=== PATIENT | female | born 1975 | race Caucasian/White ===

== ENCOUNTER 2017-02-27 14:42 | Emergency (ER) | payer BC ==
[~2017-02-27] VITALS: Ht 162.6 cm; Wt 52.0 kg
[2017-02-27 14:45] VITALS: BP 121/77; PULSE 90; RESP 18; TEMP 98.6; O2SAT 100
--- NOTE | 2017-02-27 14:54 | PD ---
HPI Chief Complaint: Respiratory Symptoms Time Seen by Provider: 14:53 Travel History International Travel<30 days: No Contact w/Intl Traveler<30days: No Traveled to known affect area: No History of Present Illness HPI 41-year-old female came to the emergency room with history of persistent headache for 14 days, shortness of breath and cough upon taking a deep breath also for 14 days. Patient is from [place] and here on vacation. She flew to [facility] 5 days ago. Patient says prior to the symptoms starting couple weeks ago she drove back and forth from [facility] to [facility] which was [address]. She is usually a very active person and has not seen a doctor in many years since she has been healthy. She has a dry cough when she takes a deep breath. She had a fever about 13 days right when all this started. This fever lasted for 1 day and after that never came back. No history of vomiting or diarrhea. She has history of headache for past 2 weeks. She usually does not get headache and it never stays for this long. She says that about 3-4 days ago she started taking iron pills [id number] which has made the headache little bit better but the shortness of breath still persists. Vital signs are within acceptable limits. [facility] Past Medical History Narrative Medical List of her past medical, surgical, social and family history is reviewed from the nursing note. ?: Not LMP: 01/2017 Social History Tobacco Use: No Allergies-Medications (Allergen,Severity, Reaction): Coded Allergies: Sulfa (Verified Allergy, Severe, RASH, 02/27/17) Comments List of her allergies reviewed from the nursing note. Reported Meds & Prescriptions Reported Meds & Active Scripts Active Ventolin Hfa 18 GM Inh (Albuterol Sulfate) 90 Mcg/Act Aer 2 Puff INH Q4-6H PRN Azithromycin 250 Mg Tab 250 Mg PO DIRECTED Take 2 tabs (500 mg) on day 1 then 1 tab daily x 4 days. Narrative Medication List of her home medications reviewed from the nursing. Review of Systems Except as stated in HPI: all other systems reviewed are Neg Physical Exam Narrative GENERAL: Awake, alert, anxious, mild distress SKIN: Focused skin assessment warm/dry. HEAD: Atraumatic. Normocephalic. EYES: Pupils equal and round. No scleral icterus. No injection or drainage. ENT: No nasal bleeding or discharge. Mucous membranes pink and moist. NECK: Trachea midline. No JVD. CARDIOVASCULAR: Regular rate and rhythm. No murmur appreciated. RESPIRATORY: No accessory muscle use. Decreased air entry bilaterally. Breath sounds equal bilaterally. GASTROINTESTINAL: Abdomen soft, non-tender, nondistended. Hepatic and splenic margins not palpable. MUSCULOSKELETAL: No obvious deformities. No clubbing. No cyanosis. No edema. NEUROLOGICAL: Awake and alert. No obvious cranial nerve deficits. Motor grossly within normal limits. Normal speech. PSYCHIATRIC: Appropriate mood and affect; insight and judgment normal. Data Data Last Documented VS Vital Signs Date Time Temp Pulse Resp B/P Pulse Ox O2 Delivery O2 Flow Rate FiO2 02/27/17 18:46 74 16 114/62 100 02/27/17 15:22 Room Air 02/27/17 15:15 98.6 Orders Complete Blood Count With Diff (02/27/17 15:01) Basic Metabolic Panel (Bmp) (02/27/17 15:01) B-Type Natriuretic Peptide (02/27/17 15:01) Troponin I (02/27/17 15:01) Iv Access Insert/Monitor (02/27/17 15:01) Electrocardiogram (02/27/17 15:01) Ecg Monitoring (02/27/17 15:01) Oximetry (02/27/17 15:01) Oxygen Administration (02/27/17 15:01) Chest, Pa & Lat (02/27/17 15:01) Sodium Chloride 0.9% Flush (Ns Flush) (02/27/17 15:15) Albuterol-Ipratropium Neb (Duoneb Neb) (02/27/17 15:15) Sodium Chlor 0.9% 1000 Ml Inj (Ns 1000 M (02/27/17 15:15) D-Dimer (02/27/17 15:03) Prochlorperazine Inj (Compazine Inj) (02/27/17 15:45) Ct Pulmonary Angiogram (02/27/17 ) Ceftriaxone Inj (Rocephin Inj) (02/27/17 16:45) Azithromycin Inj (Zithromax Inj) (02/27/17 16:45) Blood Culture (02/27/17 16:36) Iodixanol 320 Inj (Rad Ct) (Visipaque 32 (02/27/17 17:46) Labs Laboratory Tests Test 02/27/17 15:30 White Blood Count 6.4 TH/MM3 Red Blood Count 3.99 MIL/MM3 Hemoglobin 12.9 GM/DL Hematocrit 37.7 % Mean Corpuscular Volume 94.5 FL Mean Corpuscular Hemoglobin 32.2 PG Mean Corpuscular Hemoglobin 34.1 % Concent Red Cell Distribution Width 12.8 % Platelet Count 204 TH/MM3 Mean Platelet Volume 8.6 FL Neutrophils (%) (Auto) 57.2 % Lymphocytes (%) (Auto) 26.0 % Monocytes (%) (Auto) 7.0 % Eosinophils (%) (Auto) 9.3 % Basophils (%) (Auto) 0.5 % Neutrophils # (Auto) 3.7 TH/MM3 Lymphocytes # (Auto) 1.7 TH/MM3 Monocytes # (Auto) 0.4 TH/MM3 Eosinophils # (Auto) 0.6 TH/MM3 Basophils # (Auto) 0.0 TH/MM3 CBC Comment DIFF FINAL Differential Comment D-Dimer Quantitative (PE/DVT) 0.51 MG/L FEU Sodium Level 140 MEQ/L Potassium Level 4.0 MEQ/L Chloride Level 105 MEQ/L Carbon Dioxide Level 28.0 MEQ/L Anion Gap 7 MEQ/L Blood Urea Nitrogen 12 MG/DL Creatinine 0.87 MG/DL Estimat Glomerular Filtration 71 ML/MIN Rate Random Glucose 82 MG/DL Calcium Level 9.0 MG/DL Troponin I LESS THAN 0.02 NG/ML B-Type Natriuretic Peptide 42 PG/ML MDM Medical Decision Making Medical Screen Exam Complete: Yes Emergency Medical Condition: Yes Medical Record Reviewed: Yes Interpretation(s) Twelve-lead EKG was reviewed by me. Normal sinus rhythm, normal axis, nonspecific ST-T wave changes. Heart rate of 71 bpm. Differential Diagnosis Reactive airway disease, pneumonia, bronchitis, PE, brain tumor with secondary metastases to the lungs or vice versa Narrative Course 3:29 PM I wanted to order a CT scan of her head because of the intractable headache. But the patient did not want to yet. She wanted to see how the blood test looks like first. I explained to her that the blood test will not rule in or rule out brain tumor which a head CT may be able to tell. She however did not want it to be done. She was okay with all the other blood tests that has been ordered including the d-dimer. She will be getting 2 DuoNeb treatments. Awaiting for the blood test results to be done and chest x-ray. 5:10 PM blood test results are back. Patient has eosinophilia and mildly elevated d-dimer. I had a lengthy discussion with the patient regarding the CT pulmonary angiogram. Initially she was hesitant but then finally she agreed to get the CT done. She also says that after getting the breathing treatment she feels extremely better. Chest x-ray is suggestive of pneumonia as per the radiologist. I've given her dose of Rocephin and IV Zithromax. Given the fact that patient currently is afebrile and white count is within normal limits clinically I am suspicious for a pneumonia and more for PE or some other pathology. Patient says he considered of going ahead and doing the CT pulmonary angiogram and patient understands. Awaiting for the CT pulmonary angiogram. Case has been signed over to the oncoming ER physician at this point. Procedures EKG Prior to Arrival: No Scripts Albuterol 18 GM Inh (Ventolin Hfa 18 GM Inh)90 Mcg/Act Aer2 Puff INH Q4-6H PRN ( SHORTNESS OF BREATH) #1 INHALER Ref 1 Prov:German Woodard MD 02/27/17 Azithromycin 250 Mg [id number] Mg PO DIRECTED #6 TAB Ref 0 Take 2 tabs (500 mg) on day 1 then 1 tab daily x 4 days. Prov:German Woodard MD 02/27/17 Brianda Pierce MD Feb 27, 2017 14:54
[2017-02-27 15:15] VITALS: BP 91/57; PULSE 72; RESP 16; RESP 17; TEMP 98.6; O2SAT 100
[2017-02-27] MEDS ORDERED: SODIUM CHLOR 0.9% 1000 ML INJ 1,000 ML IV ONE (15:15)
[2017-02-27] MEDS ORDERED: SODIUM CHLORIDE 0.9% FLUSH 10 ML FLUSH IVF PRN (15:15)
[2017-02-27] MEDS: RESP: ALBUTEROL 2.5 MG/IPRATROPIUM 0.5 MG NEB (SCH) INH ×2 (15:21→15:22)
[2017-02-27 15:22] VITALS: O2SAT 100
[2017-02-27] MEDS ORDERED: PROCHLORPERAZINE INJ 10 MG/2 ML VIAL IV PUSH ONE (15:45)
[2017-02-27 16:04] LABS: AUTOMATED NEUTROPHIL # 3.7 TH/MM3 (1.8-7.7); BASOPHIL % 0.5 % (0.0-2.0); EOSINOPHIL # 0.6 TH/MM3 (0-0.4); EOSINOPHIL % 9.3 % (0.0-4.0); HEMATOCRIT 37.7 % (35.0-46.0); HEMO FLAGS DIFF FINAL; LYMPHOCYTE # 1.7 TH/MM3 (1.0-4.8); MEAN CELL VOLUME 94.5 FL (80.0-100.0); MEAN CORPUSCULAR HEMOGLOBIN 32.2 PG (27.0-34.0); MEAN CORPUSCULAR HGB CONC 34.1 % (32.0-36.0); NEUT % 57.2 % (16.0-70.0); PLATELET COUNT 204 TH/MM3 (150-450); RED BLOOD COUNT 3.99 MIL/MM3 (4.00-5.30); RED CELL DISTRIBUTION WIDTH 12.8 % (11.6-17.2); WHITE BLOOD COUNT 6.4 TH/MM3 (4.0-11.0)
[2017-02-27 16:29] LABS: ANION GAP 7 MEQ/L (5-15); BLOOD UREA NITROGEN 12 MG/DL (7-18); CHLORIDE 105 MEQ/L (98-107); GLOMERULAR FILTRATION RATE 71 ML/MIN (>89); SODIUM (NA) 140 MEQ/L (136-145)
--- NOTE | 2017-02-27 16:33 | RADRPT ---
EXAM DATE/TIME: 02/27/2017 16:07 [facility] COMPARISON: No previous studies available for comparison. INDICATIONS : Shortness of breath. MEDICAL HISTORY : None. SURGICAL HISTORY : None. ENCOUNTER: Initial ACUITY: 2 weeks PAIN SCORE: 0/10 LOCATION: Bilateral chest FINDINGS: There is vague infiltrate in the right upper lobe. The left lung is clear. Heart and mediastinum are unremarkable for technique. CONCLUSION: Right upper lobe infiltrate. Nicolas Dominguez MD on February 27, 2017 at 16:31 Board Certified Radiologist. This report was verified electronically.
[2017-02-27] MEDS ORDERED: AZITHROMYCIN INJ 500 MG in SODIUM CHLOR 0.9% 250 ML INJ 250 ML IV ONE (16:45)
[2017-02-27] MEDS ORDERED: cefTRIAXone INJ 1,000 MG in SODIUM CHLORIDE 0.9% INJ 100 ML IV ONE (16:45)
[2017-02-27] MEDS ORDERED: IODIXANOL 320 MG/ML 50 ML VIAL (for Rad CT) IV ONE (17:46)
--- NOTE | 2017-02-27 17:55 | RADRPT ---
EXAM DATE/TIME: 02/27/2017 17:27 [facility] COMPARISON: CHEST PA & LAT, February 27, 2017, 16:07. INDICATIONS : Short of breath for two weeks. IV CONTRAST: 50 cc Visipaque (iodixanol) IV RADIATION DOSE: 4.71 CTDIvol (mGy) MEDICAL HISTORY : None SURGICAL HISTORY : Nephrectomy, right. ENCOUNTER: Initial ACUITY: 2 weeks PAIN SCALE: 5/10 LOCATION: Bilateral chest TECHNIQUE: Volumetric scanning of the chest was performed using a pulmonary embolism protocol MIP images were re constructed. Using automated exposure control and adjustment of the mA and/or kV according to patien t size, radiation dose was kept as low as reasonably achievable to obtain optimal diagnostic quality images. DICOM format image data is available electronically for review and comparison. Follow-up recommendations for incidentally detected pulmonary nodules are based at a minimum on nodul e size and patient risk factors according to Fleischner Society Guidelines. FINDINGS: There is focal masslike consolidation right upper lobe measures 3.2 cm in size with dense hazy ground glass opacity surrounding it. This may represent round pneumonia. Underlying malignancy that is diff icult to exclude at this time. There is no pleural effusion. No appreciable pathological adenopathy is seen within the mediastinum. There is no evidence for PE for technique. CONCLUSION: Right upper lobe masslike consolidation possibly round pneumonia with surrounding par enchymal process most likely inflammatory, repeat noncontrast chest CT is suggested in 6-8 weeks afte r appropriate clinical therapy. Nicolas Dominguez MD on February 27, 2017 at 17:51 Board Certified Radiologist. This report was verified electronically.
[2017-02-27] MEDS ORDERED: VENTAER INH (18:16)
[2017-02-27] MEDS ORDERED: AZIT250T3 PO (18:16)
--- NOTE | 2017-02-27 18:17 | PD ---
Data Data Last Documented VS Vital Signs Date Time Temp Pulse Resp B/P Pulse Ox O2 Delivery O2 Flow Rate FiO2 02/27/17 18:46 74 16 114/62 100 02/27/17 15:22 Room Air 02/27/17 15:15 98.6 Orders Complete Blood Count With Diff (02/27/17 15:01) Basic Metabolic Panel (Bmp) (02/27/17 15:01) B-Type Natriuretic Peptide (02/27/17 15:01) Troponin I (02/27/17 15:01) Iv Access Insert/Monitor (02/27/17 15:01) Electrocardiogram (02/27/17 15:01) Ecg Monitoring (02/27/17 15:01) Oximetry (02/27/17 15:01) Oxygen Administration (02/27/17 15:01) Chest, Pa & Lat (02/27/17 15:01) Sodium Chloride 0.9% Flush (Ns Flush) (02/27/17 15:15) Albuterol-Ipratropium Neb (Duoneb Neb) (02/27/17 15:15) Sodium Chlor 0.9% 1000 Ml Inj (Ns 1000 M (02/27/17 15:15) D-Dimer (02/27/17 15:03) Prochlorperazine Inj (Compazine Inj) (02/27/17 15:45) Ct Pulmonary Angiogram (02/27/17 ) Ceftriaxone Inj (Rocephin Inj) (02/27/17 16:45) Azithromycin Inj (Zithromax Inj) (02/27/17 16:45) Blood Culture (02/27/17 16:36) Iodixanol 320 Inj (Rad Ct) (Visipaque 32 (02/27/17 17:46) Labs Laboratory Tests Test 02/27/17 15:30 White Blood Count 6.4 TH/MM3 Red Blood Count 3.99 MIL/MM3 Hemoglobin 12.9 GM/DL Hematocrit 37.7 % Mean Corpuscular Volume 94.5 FL Mean Corpuscular Hemoglobin 32.2 PG Mean Corpuscular Hemoglobin 34.1 % Concent Red Cell Distribution Width 12.8 % Platelet Count 204 TH/MM3 Mean Platelet Volume 8.6 FL Neutrophils (%) (Auto) 57.2 % Lymphocytes (%) (Auto) 26.0 % Monocytes (%) (Auto) 7.0 % Eosinophils (%) (Auto) 9.3 % Basophils (%) (Auto) 0.5 % Neutrophils # (Auto) 3.7 TH/MM3 Lymphocytes # (Auto) 1.7 TH/MM3 Monocytes # (Auto) 0.4 TH/MM3 Eosinophils # (Auto) 0.6 TH/MM3 Basophils # (Auto) 0.0 TH/MM3 CBC Comment DIFF FINAL Differential Comment D-Dimer Quantitative (PE/DVT) 0.51 MG/L FEU Sodium Level 140 MEQ/L Potassium Level 4.0 MEQ/L Chloride Level 105 MEQ/L Carbon Dioxide Level 28.0 MEQ/L Anion Gap 7 MEQ/L Blood Urea Nitrogen 12 MG/DL Creatinine 0.87 MG/DL Estimat Glomerular Filtration 71 ML/MIN Rate Random Glucose 82 MG/DL Calcium Level 9.0 MG/DL Troponin I LESS THAN 0.02 NG/ML B-Type Natriuretic Peptide 42 PG/ML MDM Supervised Visit with BILL: Yes Narrative Course Patient 41-year-old female assumed care from Dr. Pierce at 1700. The patient has been having cough and congestion for the past few weeks, she did have some travel prior to coming all the way here from [place] prior to the symptoms starting. A CT PE protocol was ordered. A PE study was reviewed and shows: Last 24 hours Impressions Chest X-Ray 02/27/17 1501 Signed Impressions: Service Date/Time: Monday, February 27, 2017 16:07 - CONCLUSION: Right upper lobe infiltrate. Nicolas Dominguez MD CT Angiography 02/27/17 0000 Signed Impressions: Service Date/Time: Monday, February 27, 2017 17:27 - CONCLUSION: Right upper lobe masslike consolidation possibly round pneumonia with surrounding parenchymal process most likely inflammatory, repeat noncontrast chest CT is suggested in 6-8 weeks after appropriate clinical therapy. Nicolas Dominguez MD I reviewed the images and discussed and shown them to the patient and have offered the patient admission for further workup up to and including needle biopsy and she states she would rather go home to [place] and follow-up with her [employer] there. She states her [employer] is also her friend and can get her and very quickly. Given her symptoms and her well appearance I think this is reasonable to discharge. We'll place on azithromycin and she received azithromycin and Rocephin in the emergency department. Labs reviewed and reassuring. White blood cell count normal with a slight eosinophilic predominance. We'll place on azithromycin as an outpatient as well as an albuterol inhaler. Discussed return to ED criteria and stressed the importance to follow-up with her primary care physician. Diagnosis Primary Impression: Pneumonia Additional Instruction: Follow-up the primary care provider when you return to [place]. Recommend repeat CAT scan 6-8 weeks from today. Return to the emergency Department with any fever or worsening shortness of breath. Med/Other Pt SpecificInfo: Prescription(s) given Scripts Albuterol 18 GM Inh (Ventolin Hfa 18 GM Inh)90 Mcg/Act Aer2 Puff INH Q4-6H PRN ( SHORTNESS OF BREATH) #1 INHALER Ref 1 Prov:German Woodard MD 02/27/17 Azithromycin 250 Mg [id number] Mg PO DIRECTED #6 TAB Ref 0 Take 2 tabs (500 mg) on day 1 then 1 tab daily x 4 days. Prov:German Woodard MD 02/27/17 Disposition: 01 DISCHARGE HOME Condition: Stable German Woodard MD Feb 27, 2017 18:16
[2017-02-27 18:46] VITALS: BP 114/62
--- NOTE | 2017-02-28 19:17 | EKG ---
Date Performed: 02/27/2017 Time Performed: 15:26:01 PTAGE: 41 years EKG: Sinus rhythm NORMAL ECG NO PREVIOUS TRACING DOCTOR: Dandre Rivas Interpretating Date/Time 02/28/2017 19:16:38
== END 2017-02-27 19:02 | disposition home or self-care (01) ==
LOC: NEPD 14:42
DX: J18.9 Pneumonia, unspecified organism (principal); R51 Headache; D72.1 Eosinophilia; R06.02 Shortness of breath; R79.1 Abnormal coagulation profile
CPT/HCPCS: 71020; 71275; 80048; 83880; 84484; 85025; 85379; 87040; 93005; 94640; 94664; 96361; 96374; 99285; J0456; J0696; J7030; J7050; Q9967